=== PATIENT | male | born 1940 | race Caucasian/White ===

== ENCOUNTER 2020-03-31 10:49 | Observation (INO) ==
[2020-03-31 11:41] LABS: Basophils % 0.2 %; Hematocrit 28.4 % (37.5-50.1); Hemoglobin 9.3 g/dL (12.9-16.9); Immature Granulocytes % 0.2 % (0-4); Lymphocytes # 1.5 K/mcL (0.6-4.6); Lymphocytes % 16.8 %; Mean Corpuscular HGB Conc 32.7 g/dL (31.6-35.5); Mean Corpuscular Hemoglobin 28.6 pg (28.0-33.3); Mean Corpuscular Volume 87.4 fL (83.0-100.0); Mean Platelet Volume 10.6 fL (9.4-12.4); Monocytes # 0.8 K/mcL (0.0-1.3); Monocytes % 8.5 %; Neutrophils # 6.7 K/mcL (1.6-8.9); Platelet Count 253 K/mcL (140-400); Red Blood Count 3.25 M/mcL (4.19-5.50); Red Cell Distribution Width 13.3 % (11.5-14.5); Segmented Neutrophils % 74.3 %
[2020-03-31 11:49] LABS: Prothrombin Time 11.7 Seconds (9.4-12.1)
[2020-03-31 11:52] LABS: D-Dimer < 215 ng/mLFEU (0-500)
[2020-03-31 11:56] LABS: Bilirubin,Urine Negative (Negative); Blood,Urine Negative (Negative); Clarity,Urine Clear (Clear); Color,Urine Light Yellow (Yellow); Glucose,Urine (UA) Normal (Normal); Ketones,Urine Negative (Negative); Leukocyte Esterase,Urine Negative (Negative); Nitrite,Urine Negative (Negative); Protein,Urine Negative (Neg-Trace); Specific Gravity,Urine 1.015 (1.010-1.025); Urobilinogen,Urine Normal (Normal)
[2020-03-31 12:00] LABS: Alanine Aminotransferase 13 Units/L (7-52); Albumin 4.9 g/dL (3.5-5.7); Albumin/Globulin Ratio 2.1 (1.1-2.2); Alkaline Phosphatase 57 Units/L (34-104); Aspartate Amino Transferase 12 Units/L (13-39); BUN/Creatinine Ratio 21 (6-26); Bilirubin,Total 0.5 mg/dL (0.3-1.0); Blood Urea Nitrogen 23 mg/dL (8-23); Calcium 10.2 mg/dL (8.6-10.3); Carbon Dioxide 24 mEq/L (23-29); Chloride 103 mEq/L (98-107); Globulin 2.3 g/dL (2.4-3.5); Glucose 101 mg/dL (70-105); Magnesium 1.9 mg/dL (1.6-2.6); Osmolality,Calculated 288 (280-300); Potassium 3.5 mEq/L (3.5-5.1); Sodium 137 mEq/L (136-145); Total Protein 7.2 g/dL (6.4-8.9); Troponin I < 0.03 ng/mL (< 0.04); eGFR For African Americans > 60 (> 60); eGFR For Non-African Americans > 60 (> 60)
[2020-03-31] MEDS ORDERED: Morphine Sulfate 2 MG/ML SYRINGE IVP ONE (12:03)
[2020-03-31] MEDS ORDERED: Ondansetron 4 MG/2 ML VIAL IVP ONE (12:03)
[2020-03-31] MEDS ORDERED: Dextrose Gel 15 GM/37.5 ML TUBE PO PRN ×2 (13:20)
[2020-03-31] MEDS ORDERED: *HR* Dextrose 50 % in Water (Vial) 50 ML VIAL IVP PRN (13:20)
[2020-03-31] MEDS ORDERED: D5% in Water 1,000 ML IVC PRN (13:20)
[2020-03-31] MEDS ORDERED: Naloxone 0.4 MG/ML INJ IVP PRN (13:22)
[2020-03-31] MEDS ORDERED: Ondansetron 4 MG/2 ML VIAL IVP PRN (13:22)
[2020-03-31] MEDS ORDERED: MOM Conc 10 ML UD.LIQ PO PRN (13:22)
[2020-03-31] MEDS ORDERED: Acetaminophen 325 MG TABLET PO PRN (13:22)
[2020-03-31] MEDS ORDERED: Ipratropium/Albuterol Neb 3 ML IH PRN (13:27)
[2020-03-31 14:13] VITALS: BP 116/47
[2020-03-31] MEDS ORDERED: MethylPREDNISolone 40 MG/ML VIAL IVP SCH (16:00)
[2020-03-31] MEDS ORDERED: *HR* LORazepam 2 MG/ML VIAL IVP ONE (16:10)
[2020-03-31] MEDS ORDERED: *HR* LORazepam 0.5 MG TABLET PO PRN (16:11)
[2020-03-31] MEDS ORDERED: rOPINIRole 1 MG TABLET PO SCH (21:00)
[2020-03-31] MEDS ORDERED: traZODone 50 MG TABLET PO SCH (21:00)
[2020-03-31] MEDS ORDERED: Insulin LISPRO 300 UNITS/3 ML VIAL SQ SCH (21:00)
[2020-04-01] MEDS ORDERED: atenoloL 25 MG TABLET PO SCH (09:00)
[2020-04-01] MEDS ORDERED: Furosemide 40 MG TABLET PO SCH (09:00)
[2020-04-01] MEDS ORDERED: lisinopriL 20 MG TABLET PO SCH (09:00)
== END 2020-03-31 17:04 | disposition left against medical advice (07) ==
LOC: INPPIK 10:49 → EMEROOPIK 10:49 → INPPIK 13:29
PROVIDERS: ADMIT Internal Medicine; ATTEND Internal Medicine

== ENCOUNTER 2020-04-01 11:38 | Observation (INO) ==
[2020-04-01] MEDS ORDERED: cefTRIAXone 2,000 MG in 0.9 % Sodium Chloride Mini Bag 100 ML IVPB ONE (11:45)
[2020-04-01] MEDS ORDERED: 0.9 % Sodium Chloride 1,000 ML IVC SCH (11:45)
[2020-04-01] MEDS ORDERED: Azithromycin 500 MG in 0.9 % Sodium Chloride 250 ML IVPB ONE (11:45)
[2020-04-01] MEDS ORDERED: methylPREDNISolone 125 MG/2 ML VIAL IVP ONE (11:46)
[2020-04-01] MEDS ORDERED: *HR* LORazepam 2 MG/ML VIAL IVP ONE (11:46)
[2020-04-01] MEDS ORDERED: Ipratropium/Albuterol Neb 3 ML IH ONE (11:47)
[2020-04-01] MEDS ORDERED: Ondansetron 4 MG/2 ML VIAL IVP PRN (12:38)
[2020-04-01] MEDS ORDERED: Mag Hydrox/Al Hydrox/Simeth 30 ML UDC PO PRN (12:38)
[2020-04-01] MEDS ORDERED: Naloxone 0.4 MG/ML INJ IVP PRN (12:38)
[2020-04-01] MEDS ORDERED: MOM Conc 10 ML UD.LIQ PO PRN (12:38)
[2020-04-01] MEDS ORDERED: Acetaminophen 325 MG TABLET PO PRN (12:38)
[2020-04-01] MEDS ORDERED: *HR* LORazepam 0.5 MG TABLET PO PRN (12:49)
[2020-04-01] MEDS ORDERED: Dextrose Gel 15 GM/37.5 ML TUBE PO PRN ×2 (12:54)
[2020-04-01] MEDS ORDERED: *HR* Dextrose 50 % in Water (Vial) 50 ML VIAL IVP PRN (12:54)
[2020-04-01] MEDS ORDERED: D5% in Water 1,000 ML IVC PRN (12:54)
[2020-04-01] MEDS ORDERED: Ipratropium/Albuterol Neb 3 ML IH PRN (12:55)
[2020-04-01] MEDS: Insulin LISPRO 300 UNITS/3 ML VIAL SQ SCH (16:25)
[2020-04-01] MEDS: *HR* LORazepam 0.5 MG TABLET PO SCH (20:13)
[2020-04-01] MEDS ORDERED: traZODone 50 MG TABLET PO SCH (21:00)
[2020-04-01] MEDS ORDERED: rOPINIRole 1 MG TABLET PO SCH (21:00)
[2020-04-01] MEDS ORDERED: Insulin LISPRO 300 UNITS/3 ML VIAL SQ SCH (21:00)
[2020-04-02] MEDS: MethylPREDNISolone 40 MG/ML VIAL IVP SCH ×2 (00:05→08:29)
[2020-04-02 07:07] LABS: Basophils % 0.1 %; Hematocrit 27.5 % (37.5-50.1); Immature Granulocytes % 0.6 % (0-4); Lymphocytes # 0.8 K/mcL (0.6-4.6); Mean Corpuscular HGB Conc 32.7 g/dL (31.6-35.5); Mean Corpuscular Hemoglobin 28.4 pg (28.0-33.3); Mean Corpuscular Volume 86.8 fL (83.0-100.0); Mean Platelet Volume 10.7 fL (9.4-12.4); Monocytes # 0.4 K/mcL (0.0-1.3); Monocytes % 4.3 %; Neutrophils # 7.6 K/mcL (1.6-8.9); Platelet Count 245 K/mcL (140-400); Red Blood Count 3.17 M/mcL (4.19-5.50); Red Cell Distribution Width 13.7 % (11.5-14.5); White Blood Count 8.9 K/mcL (4.3-11.1)
[2020-04-02] MEDS: *HR* LORazepam 0.5 MG TABLET PO SCH (08:29)
[2020-04-02] MEDS: Insulin LISPRO 300 UNITS/3 ML VIAL SQ SCH ×2 (08:30→11:51)
[2020-04-02 08:32] LABS: BUN/Creatinine Ratio 23 (6-26); Blood Urea Nitrogen 23 mg/dL (8-23); Calcium 9.7 mg/dL (8.6-10.3); Carbon Dioxide 24 mEq/L (23-29); Chloride 106 mEq/L (98-107); Glucose 168 mg/dL (70-105); Osmolality,Calculated 296 (280-300); Potassium 4.2 mEq/L (3.5-5.1); Sodium 139 mEq/L (136-145); eGFR For African Americans > 60 (> 60); eGFR For Non-African Americans > 60 (> 60)
[2020-04-02] MEDS ORDERED: Furosemide 40 MG TABLET PO SCH (09:00)
[2020-04-02] MEDS ORDERED: atenoloL 25 MG TABLET PO SCH (09:00)
[2020-04-02] MEDS ORDERED: Tiotropium 18 MCG inhalation IH SCH (09:00)
[2020-04-02] MEDS ORDERED: lisinopriL 20 MG TABLET PO SCH (09:00)
[2020-04-02] MEDS ORDERED: *HR* LORazepam 2 MG/ML VIAL IVP ONE (10:30)
[2020-04-02 10:48] VITALS: BP 103/61
[2020-04-02] MEDS ORDERED: Ipratropium/Albuterol Neb 3 ML IH SCH (12:00)
[2020-04-02] MEDS ORDERED: Azithromycin 500 MG in 0.9 % Sodium Chloride 250 ML IVPB SCH (13:00)
[2020-04-02 20:55] LABS: % Iron Saturation 23 % (20-55); Iron 118 mcg/dL (65-175); Transferrin 359 mg/dL (203-362)
[2020-04-02 21:27] LABS: Folate > 22.3 ng/mL (3.0-16.0); Vitamin B12 464 pg/mL (250-1100)
== END 2020-04-02 13:05 | disposition left against medical advice (07) ==
LOC: INPPIK 11:38 → EMEROOPIK 11:38 → INPPIK 12:40
PROVIDERS: ADMIT Registered Nurse Emergency; ATTEND Registered Nurse Emergency

== ENCOUNTER 2020-04-05 14:34 | Observation (INO) ==
[2020-04-05] MEDS ORDERED: Isovue-370 500 ML BOTTLE IVP ONE (15:15)
[2020-04-05 16:06] LABS: Basophils % 0.1 %; Hemoglobin 9.5 g/dL (12.9-16.9); Immature Granulocytes % 0.6 % (0-4); Lymphocytes # 1.2 K/mcL (0.6-4.6); Mean Corpuscular HGB Conc 32.8 g/dL (31.6-35.5); Mean Corpuscular Hemoglobin 28.7 pg (28.0-33.3); Mean Corpuscular Volume 87.6 fL (83.0-100.0); Mean Platelet Volume 9.9 fL (9.4-12.4); Monocytes # 0.7 K/mcL (0.0-1.3); Monocytes % 7.5 %; Neutrophils # 7.8 K/mcL (1.6-8.9); Platelet Count 311 K/mcL (140-400); Red Blood Count 3.31 M/mcL (4.19-5.50); Red Cell Distribution Width 13.9 % (11.5-14.5); Segmented Neutrophils % 79.8 %; White Blood Count 9.7 K/mcL (4.3-11.1)
[2020-04-05 16:15] LABS: Prothrombin Time 11.8 Seconds (9.4-12.1)
[2020-04-05 16:23] LABS: Alanine Aminotransferase 16 Units/L (7-52); Albumin 4.6 g/dL (3.5-5.7); Albumin/Globulin Ratio 2.2 (1.1-2.2); Alkaline Phosphatase 55 Units/L (34-104); Aspartate Amino Transferase 11 Units/L (13-39); BUN/Creatinine Ratio 30 (6-26); Bilirubin,Total 0.3 mg/dL (0.3-1.0); Blood Urea Nitrogen 33 mg/dL (8-23); Calcium 10.1 mg/dL (8.6-10.3); Carbon Dioxide 26 mEq/L (23-29); Chloride 98 mEq/L (98-107); Globulin 2.1 g/dL (2.4-3.5); Glucose 152 mg/dL (70-105); Magnesium 2.1 mg/dL (1.6-2.6); Osmolality,Calculated 286 (280-300); Potassium 4.4 mEq/L (3.5-5.1); Sodium 133 mEq/L (136-145); Total Protein 6.7 g/dL (6.4-8.9); eGFR For African Americans > 60 (> 60); eGFR For Non-African Americans > 60 (> 60)
[2020-04-05 16:24] LABS: D-Dimer < 215 ng/mLFEU (0-500)
[2020-04-05 16:26] LABS: Troponin I < 0.03 ng/mL (< 0.04)
[2020-04-05] MEDS ORDERED: *HR* LORazepam 2 MG/ML VIAL IVP PRN (22:48)
[2020-04-06] MEDS ORDERED: Naloxone 0.4 MG/ML INJ IVP PRN (00:26)
[2020-04-06] MEDS ORDERED: Isovue-370 500 ML BOTTLE IVP ONE (00:26)
[2020-04-06] MEDS ORDERED: Azithromycin 250 MG TABLET PO SCH (00:26)
[2020-04-06] MEDS ORDERED: levoFLOXacin 750 MG/150 ML 750 MG/150 ML BAG IVPB SCH ×2 (00:30→01:00)
[2020-04-06] MEDS: Acetaminophen 325 MG TABLET PO PRN ×3 (01:09→20:00)
[2020-04-06] MEDS: lisinopriL 20 MG TABLET PO SCH (09:27)
[2020-04-06] MEDS: Furosemide 40 MG TABLET PO SCH (09:27)
[2020-04-06] MEDS: Insulin DETEMIR 100 UNIT/ML X5UNITS SQ SCH ×2 (09:28→21:01)
[2020-04-06] MEDS: atenoloL 25 MG TABLET PO SCH (09:28)
[2020-04-06] MEDS: predniSONE 20 MG TABLET PO SCH (09:28)
[2020-04-06] MEDS: Budesonide/Formoterol 160/4.5 1 PUFF INH IH SCH ×2 (09:41→22:23)
[2020-04-06] MEDS: Tiotropium 18 MCG inhalation IH SCH (09:42)
[2020-04-06] MEDS: *HR* LORazepam 2 MG/ML VIAL IVP PRN ×2 (11:17→20:01)
[2020-04-06] MEDS: *HR* HYDROcodone/Acet 5/325 mg TABLET PO PRN (16:58)
[2020-04-06] MEDS ORDERED: rOPINIRole 1 MG TABLET PO SCH (21:00)
[2020-04-06] MEDS ORDERED: traZODone 50 MG TABLET PO SCH (21:00)
[2020-04-07] MEDS: *HR* HYDROcodone/Acet 5/325 mg TABLET PO PRN (06:19)
[2020-04-07 06:41] VITALS: BP 124/63
[2020-04-07] MEDS: Tiotropium 18 MCG inhalation IH SCH (09:28)
[2020-04-07] MEDS: Budesonide/Formoterol 160/4.5 1 PUFF INH IH SCH (09:28)
[2020-04-07] MEDS: lisinopriL 20 MG TABLET PO SCH (09:55)
[2020-04-07] MEDS: predniSONE 20 MG TABLET PO SCH (09:55)
[2020-04-07] MEDS: Furosemide 40 MG TABLET PO SCH (09:55)
[2020-04-07] MEDS: Insulin DETEMIR 100 UNIT/ML X5UNITS SQ SCH (09:56)
[2020-04-07] MEDS: atenoloL 25 MG TABLET PO SCH (09:56)
[2020-04-07 11:06] LABS: Hematocrit 26.8 % (37.5-50.1); Hemoglobin 8.9 g/dL (12.9-16.9); Mean Corpuscular HGB Conc 33.2 g/dL (31.6-35.5); Mean Corpuscular Volume 87.3 fL (83.0-100.0); Mean Platelet Volume 10.6 fL (9.4-12.4); Platelet Count 293 K/mcL (140-400); Red Blood Count 3.07 M/mcL (4.19-5.50); Red Cell Distribution Width 14.1 % (11.5-14.5); White Blood Count 10.2 K/mcL (4.3-11.1)
[2020-04-08] MEDS ORDERED: levoFLOXacin 750 MG/150 ML 750 MG/150 ML BAG IVPB SCH (09:00)
== END 2020-04-07 11:45 | disposition home health service (06) ==
LOC: INPPIK 14:34 → EMEROOPIK 14:34 → INPPIK 04-06 00:11
PROVIDERS: ADMIT Family Medicine; ATTEND Family Medicine

== ENCOUNTER 2020-06-02 13:25 | Inpatient (IN) ==
[2020-06-02] MEDS ORDERED: 0.9 % Sodium Chloride 1,000 ML IVC ONE (13:39)
[2020-06-02 13:57] LABS: Basophils # 0.1 K/mcL (0.0-0.2); Basophils % 0.5 %; Eosinophils # 0.1 K/mcL (0.0-0.6); Eosinophils % 0.3 %; Hematocrit 31.1 % (37.5-50.1); Hemoglobin 10.1 g/dL (12.9-16.9); Immature Granulocytes % 0.4 % (0-4); Lymphocytes # 0.5 K/mcL (0.6-4.6); Lymphocytes % 3.4 %; Mean Corpuscular HGB Conc 32.5 g/dL (31.6-35.5); Mean Corpuscular Hemoglobin 29.8 pg (28.0-33.3); Mean Corpuscular Volume 91.7 fL (83.0-100.0); Mean Platelet Volume 10.8 fL (9.4-12.4); Monocytes # 0.7 K/mcL (0.0-1.3); Monocytes % 4.6 %; Neutrophils # 13.9 K/mcL (1.6-8.9); Platelet Count 273 K/mcL (140-400); Red Blood Count 3.39 M/mcL (4.19-5.50); Red Cell Distribution Width 15.7 % (11.5-14.5); Segmented Neutrophils % 90.8 %; White Blood Count 15.3 K/mcL (4.3-11.1)
[2020-06-02 14:12] LABS: BUN/Creatinine Ratio 15 (6-26); Blood Urea Nitrogen 18 mg/dL (8-23); Calcium 8.5 mg/dL (8.6-10.3); Carbon Dioxide 28 mEq/L (23-29); Chloride 97 mEq/L (98-107); Glucose 108 mg/dL (70-105); Osmolality,Calculated 278 (280-300); Potassium 4.3 mEq/L (3.5-5.1); Sodium 133 mEq/L (136-145); eGFR For African Americans > 60 (> 60); eGFR For Non-African Americans > 60 (> 60)
[2020-06-02] MEDS ORDERED: levoFLOXacin 750 MG/150 ML 750 MG/150 ML BAG IVPB ONE (15:44)
[2020-06-02] MEDS ORDERED: Cefepime HCl 1,000 MG in Water for inj. (sterile) 10 ML IVP ONE (15:45)
[2020-06-02 15:53] LABS: Bilirubin,Urine Negative (Negative); Blood,Urine Negative (Negative); Clarity,Urine Clear (Clear); Color,Urine Yellow (Yellow); Glucose,Urine (UA) Normal (Normal); Ketones,Urine Negative (Negative); Leukocyte Esterase,Urine Trace (Negative); Nitrite,Urine Negative (Negative); PH,Urine 5.5 pH Units (5.0-8.0); Protein,Urine Negative (Neg-Trace); Urobilinogen,Urine Normal (Normal)
[2020-06-02 16:03] LABS: Squamous Epithelial Cell,Urine Few per hpf (None-Few); WBC,Urine 0-3 per hpf (0-3)
[2020-06-02] MEDS ORDERED: Acetaminophen 325 MG TABLET PO PRN (16:38)
[2020-06-02] MEDS ORDERED: Ondansetron 4 MG/2 ML VIAL IVP PRN (16:38)
[2020-06-02] MEDS ORDERED: Naloxone 0.4 MG/ML INJ IVP PRN ×2 (16:38→16:56)
[2020-06-02] MEDS ORDERED: 0.9 % Sodium Chloride 1,000 ML IVC SCH (16:45)
[2020-06-02] MEDS ORDERED: D5% in Water 1,000 ML IVC PRN (17:51)
[2020-06-02] MEDS ORDERED: *HR* Dextrose 50 % in Water (Vial) 50 ML VIAL IVP PRN (17:51)
[2020-06-02] MEDS ORDERED: Dextrose Gel 15 GM/37.5 ML TUBE PO PRN ×2 (17:51)
[2020-06-02] MEDS ORDERED: Insulin DETEMIR 100 UNIT/ML per UNIT SQ ONE (21:00)
[2020-06-03 06:29] VITALS: BP 110/63
[2020-06-03] MEDS ORDERED: Insulin LISPRO 300 UNITS/3 ML VIAL SQ SCH (07:30)
[2020-06-03 08:16] LABS: Hemoglobin 9.8 g/dL (12.9-16.9); Mean Corpuscular HGB Conc 32.7 g/dL (31.6-35.5); Mean Corpuscular Hemoglobin 29.8 pg (28.0-33.3); Mean Corpuscular Volume 91.2 fL (83.0-100.0); Mean Platelet Volume 10.5 fL (9.4-12.4); Platelet Count 243 K/mcL (140-400); Red Blood Count 3.29 M/mcL (4.19-5.50); Red Cell Distribution Width 15.5 % (11.5-14.5); White Blood Count 7.3 K/mcL (4.3-11.1)
[2020-06-03 08:30] LABS: BUN/Creatinine Ratio 16 (6-26); Blood Urea Nitrogen 14 mg/dL (8-23); Calcium 8.9 mg/dL (8.6-10.3); Carbon Dioxide 27 mEq/L (23-29); Chloride 108 mEq/L (98-107); Glucose 69 mg/dL (70-105); Osmolality,Calculated 293 (280-300); Sodium 142 mEq/L (136-145); eGFR For African Americans > 60 (> 60); eGFR For Non-African Americans > 60 (> 60)
[2020-06-03] MEDS ORDERED: FLU Vac QV 20-21 (6Month+)/PF 0.5 ML SYRINGE IM ONE (10:09)
[2020-06-03] MEDS ORDERED: Insulin DETEMIR 100 UNIT/ML X5UNITS SQ SCH (21:00)
[2020-06-04] MEDS ORDERED: levoFLOXacin 750 MG/150 ML 750 MG/150 ML BAG IVPB SCH (16:00)
== END 2020-06-03 12:00 | disposition home health service (06) | DRG 194 ==
LOC: EMEROOPIK 13:25 → INPPIK 13:25 → EMEROOPIK 17:31 → UNDODEPER 17:31
PROVIDERS: ADMIT Family Medicine; ATTEND Family Medicine